=== PATIENT | male | born 1995 | race Caucasian/White ===

== ENCOUNTER 2020-07-03 15:54 | Emergency (ER) | payer OTHER ==
[2020-07-03 16:08] VITALS: BP 159/62; PULSE 69; TEMP 98.2; BMI 26.4
[2020-07-03] MEDS ORDERED: ACETAMINOPHEN 325 MG TABLET (FP) PO ONE (17:20)
[2020-07-03] MEDS ORDERED: LIDOCAINE HCL 2% JELLY 10 ML CARTRIDGE PR ONE (17:21)
[2020-07-03] MEDS ORDERED: ACETAMINOPHEN 325 MG TABLET (FP) ONE (17:32)
[2020-07-03] MEDS ORDERED: LIDOCAINE HCL 2% JELLY (5 ML/TUBE) ONE (17:33)
[2020-07-03] MEDS ORDERED: CEPHALEXIN MONOHYDRATE 500 MG CAPSULE (UD) PO ONE (18:55)
[2020-07-03] MEDS ORDERED: CEPHALEXIN MONOHYDRATE 500 MG CAPSULE (UD) ONE (19:21)
== END 2020-07-03 19:25 | disposition home or self-care (01) ==
LOC: JER 15:54
PROC: 0HQ0XZZ Repair Scalp Skin, External Approach (ICD-10-PCS; principal; 2020-07-03)
DX: S02.19XB Other fracture of base of skull, initial encounter for open fracture (principal); S01.111A Laceration without foreign body of right eyelid and periocular area, initial encounter
CPT/HCPCS: 70450-TC; 70486-TC; 82962; 99285-25